=== PATIENT | male | born 1975 | race Caucasian/White ===

== ENCOUNTER 2020-04-26 13:23 | Outpatient (CLI) | payer MEDICARE, MEDICAID, SELFPAY ==
--- NOTE | ~2020-04-26 | US_ITS ---
EXAMINATION: US thyroid DATE: 04/26/2020 13:53 INDICATION: Nontoxic goiter. TECHNIQUE: Multiple ultrasound images of the thyroid were obtained. COMPARISON: None. FINDINGS: The right thyroid lobe measures 6.3 x 1.7 x 2.1 cm. The left thyroid lobe measures 5.1 x 1.7 x 2.3 c m. There is normal echotexture and echogenicity throughout the thyroid gland. No discrete nodules id entified. Normal vascular flow is present. IMPRESSION: 1. Normal thyroid. Reviewed, dictated and finalized at location B. THERAPIST IMPRESSION: 1. Normal thyroid.
== END 2020-04-26 13:24 | disposition home or self-care (01) ==
PROVIDERS: PCP Internal Medicine Infectious Disease; Visit Provider Internal Medicine Infectious Disease
DX: E04.9 Nontoxic goiter, unspecified (principal)
CPT/HCPCS: 76536